=== PATIENT | female | born 1975 | race Caucasian/White ===

== ENCOUNTER 2021-06-16 10:17 | Inpatient (IN) | payer OTHER, SELFPAY ==
[2021-06-16] VITALS (11 sets, daily range): BP systolic 90–135; BP diastolic 50–87; PULSE 70–108; RESP 15–21; TEMP 36.6–36.7; O2SAT 97–100; BMI 35.9
--- NOTE | ~2021-06-16 | XR_ITS ---
EXAMINATION: XR chest 2V DATE: 06/16/2021 10:37 INDICATION: Chest pain TECHNIQUE: AP and lateral views of the chest are obtained. COMPARISON: None available FINDINGS: The lungs are free of acute opacities. There is no pleural effusion or pneumothorax. The ca rdiomediastinal silhouette is normal. The visualized bones and soft tissues are unremarkable. A cardi ac monitoring device projects over the left upper thorax. IMPRESSION: 1. No acute cardiopulmonary abnormality. Reviewed, dictated and finalized at location A.
--- NOTE | 2021-06-16 10:28 | ECG_ITS ---
Measurements Intervals [place] Rate: 97 P: 34 IA: 147 QRS: -4 QRSD: 94 T: 0 QT: 383 QTc: 487 Interpretive Statements SINUS RHYTHM INCOMPLETE RIGHT BUNDLE BRANCH BLOCK BORDERLINE T WAVE ABNORMALITY- ANTEROLAT/INF LEADS BORDERLINE ECG Electronically Signed On 06-16-2021 10:58:29 CDT by Giovani Irwin D.O.
--- NOTE | 2021-06-16 10:39 | PC.NURSE ---
Pt to XRAY via stretcher at this time.
[2021-06-16 11:22] LABS: Basophils Absolute Auto 0.1 K/mm3 (0.0-0.1); Basophils Percent Auto 0.8 % (0.2-1.2); Eosinophils Absolute Auto 0.2 K/mm3 (0-0.3); Eosinophils Percent Auto 1.3 % (0-4.4); Hematocrit 42.4 % (37.0-47.0); Hemoglobin 13.8 g/dL (12.0-15.0); Immature Granulocyte Absolute 0.04 K/mm3 (0.00-0.031); Immature Granulocyte Percent A 0.3 % (0-0.5); Lymphocytes Absolute Auto 1.86 K/mm3 (0.9-3.2); Lymphocytes Percent Auto 15.8 % (18.3-44.2); Mean Corpuscular HGB Conc 32.5 g/dl (32-36); Mean Corpuscular Hemoglobin 30.4 pg (26-34); Mean Corpuscular Volume 93.4 fl (80-100); Mean Platelet Volume 10.4 fl (7.4-10.4); Monocytes Absolute Auto 0.7 K/mm3 (0.1-0.6); Monocytes Percent Auto 5.6 % (2.6-8.5); Neutrophils Percent Auto 76.2 % (45.5-73.1); Platelet Count Result 305 k/mm3 (150-375); Red Blood Count 4.54 M/mm3 (4.2-5.4); Red Cell Distribution Width 12.5 % (11.5-14.5); White Blood Count 11.8 K/mm3 (4.5-10.0)
[2021-06-16 11:32] LABS: Partial Thromboplastin Time 25.2 SECONDS (22.3-36.8)
[2021-06-16 11:34] LABS: Alanine Aminotransferase 29 U/L (4-35); Albumin Level 4.1 g/dL (3.5-5.1); Alkaline Phosphatase 74 U/L (38-126); Anion Gap 8 mmol/L (8-16); Aspartate Amino Transferase 47 U/L (14-36); Bilirubin,Total 0.4 mg/dL (0.2-1.3); Blood Urea Nitrogen 14 mg/dL (7-17); Carbon Dioxide 27 mmol/L (22-30); Chloride 103 mmol/L (98-107); Estimated CRCL calculation 91 ml/min; Estimated Glomerular Filt Rate > 60; Glucose 107 mg/dL (65-110); Lipase 374 U/L (23-300); Potassium 3.6 mmol/L (3.4-5.0); Sodium 138 mmol/L (137-145)
[2021-06-16 11:45] LABS: Troponin I < 0.012 ng/mL (0.000-0.034)
--- NOTE | 2021-06-16 13:56 | ED.CHESTPAIN ---
HPI - Chest Pain General Chief Complaint: Chest Pain Stated Complaint: CP Time Seen by Provider: 06/16/21 12:08 Source: patient and family Mode of arrival: EMS Limitations: no limitations History of Present Illness HPI narrative: 45-year-old with a history of hypertension, breast CVA presently on tamoxifen presents to the ER from work with complaints of having a sudden onset of chest pain associated denies nausea, diaphoresis and, lightheadedness followed by syncopal episode. Patient states that she has been having the symptoms for last few months. Had a stress echo done at [facility] which was unremarkable followed by CTA of the chest which was normal last she had a Holter monitor placed. Her primary automation clerk Dr. Mcfarlane in [place], [place] she states that she is scheduled to see Dr. Roque at [facility] sometime next wk . Patient states she did receive nitro which eased the pain. MD complaint: chest pain Onset (ago): hour(s) (1) Related Data Allergies Allergy/AdvReac Type Severity Reaction Status Date / Time No Known Allergies Allergy Verified 06/16/21 10:40 Review of Systems Constitutional: Constitutional: Reports no additional constitutional complaints Eyes: Eyes: Reports no additional eye complaints ENT: Reports system reviewed and no additional complaints, except as documented Cardiovascular: Cardiovascular: Reports as per HPI Respiratory: Respiratory: Reports no additional respiratory complaints Gastrointestinal: Gastrointestinal: Reports no additional gastrointestinal complaints Musculoskeletal: Musculoskeletal: Reports no additional musculoskeletal complaints Integumentary/Breasts: Skin/Breast: Reports system reviewed and no additional complaints, except as docu Neurologic: Reports system reviewed and no additional complaints, except as documented Endocrine: Endocrine: Reports no additional endocrine complaints Hematologic/Lymphatic: Hematologic/Lymphatic: Reports no additional hematologic/lymphatic complaints Exam Narrative: GENERAL: Well-appearing, well-nourished, and in no acute distress, anxious HEAD: Normocephalic, atraumatic. EYES: PERRLA and EOMI. NECK: Supple. CHEST: Clear to auscultation. No respiratory distress. HEART: Regular rate and rhythm. No murmur heard. Normal peripheral pulses. ABDOMEN: Soft, nontender, nondistended, normal active bowel sounds. EXTREMITIES: Normal range of motion. No edema. SKIN: Warm, dry, no rash. NEURO: No focal deficits. Alert and oriented x3. PSYCH: Normal mood and affect. Course Course Emergency Course: Patient comfortably sitting on the bed still feeling anxious informed her about her lab work, EKG and chest x-ray findings. I discussed with Dr. Roque will see the patient in consult discussed with Suzie stout to admit the patient Vital Signs Vital signs: Vital Signs Temperature 36.6 C 06/16/21 10:29 Pulse Rate 104 H 06/16/21 10:29 Respiratory Rate 18 06/16/21 10:29 Blood Pressure 135/84 06/16/21 10:29 Pulse Oximetry 97 06/16/21 10:29 Temperature 36.6 C 06/16/21 10:29 Pulse Rate 91 06/16/21 12:58 Respiratory Rate 21 H 06/16/21 12:58 Blood Pressure 115/87 06/16/21 12:58 Pulse Oximetry 98 06/16/21 12:58 MDM - Chest Pain Differential Diagnosis Differential diagnosis: Likely unstable angina pectoris and atypical chest pain Lab Data Attestation: I reviewed the patient's lab results. Result diagrams: 06/16/21 11:12 06/16/21 11:12 Labs: Lab Results 06/16/21 06/16/21 06/16/21 Range/Units 11:12 11:12 11:12 WBC 11.8 H (4.5-10.0) K/mm3 RBC 4.54 (4.2-5.4) M/mm3 Hgb 13.8 (12.0-15.0) g/dL Hct 42.4 (37.0-47.0) % MCV 93.4 (80-100) fl MCH 30.4 (26-34) pg MCHC 32.5 (32-36) g/dl RDW 12.5 (11.5-14.5) % Plt Count 305 (150-375) k/mm3 MPV 10.4 (7.4-10.4) fl Immature Gran % (Auto) 0.3 (0-0.5) % Neut % (Auto) 76.2 H (45.5-73.1)
[2021-06-16 14:34] LABS: Troponin I < 0.012 ng/mL (0.000-0.034)
[2021-06-16 14:53] LABS: SARS-CoV-2 RNA PCR Negative
--- NOTE | 2021-06-16 15:19 | PC.NURSE ---
called dietary and ordered tray for pt at this time, will be sent to admit room 210
[2021-06-16 17:40] LABS: Troponin I < 0.012 ng/mL (0.000-0.034)
[2021-06-16] MEDS: LACTATED RINGERS 1,000 ML 75 ML IV CONT (17:51)
--- NOTE | 2021-06-16 18:30 | PM.IMHP ---
H&P: HPI History of Present Illness Date/Time: 06/16/21 18:30 Chief Complaint: Syncopal episode. Narrative: This is a pleasant 45-year-old female with hypertension and history of breast cancer who presented to the emergency department via EMS from her place of work for evaluation after syncopal episode. She had her gallbladder taken out at the beginning of April and approximately 3 weeks thereafter she had an episode of pretty significant low sternal/epigastric pain followed by nausea, vomiting, diaphoresis, and brief loss of consciousness. She was seen in the emergency department [facility] at which time a chest CTA and multiple tests were performed and reportedly unremarkable. She had a similar episode about a week thereafter which occurred while she was sitting down and that prompted her to see her primary care provider who put her on a 3 week event monitor late last week. She has been getting along okay however not long prior to arrival today, she was sitting at her desk at work cutting out some papers when she once again developed severe, midsternal chest pain (burning and stabbing in nature) radiating to the left axilla associated with diaphoresis, nausea, and lightheadedness. She went to the bathroom where she had several episodes of emesis and due to continued lightheadedness she called her coworkers who came in to check on her. It is my understanding that she then had a brief syncopal episode however for several minutes she seemed to go in and out of consciousness. On EMS arrival, she told them that she was having such severe chest pain that it was ?taking her breath away? and her breathing was reportedly shallow and rapid. Vital signs were stable on their arrival and on arrival to the ED. Currently she is resting comfortably and she has no specific complaints and she has no pain at this time. Review of Systems Review of Systems: Twelve systems were reviewed. No fever or chills. No recent cold or flu symptoms. No history of thyroid disease. No history of cardiac disease or cardiac dysrhythmia. No history of venous thromboembolism. No exertional chest pain. No orthopnea, PND, or lower extremity edema. She denies hematemesis, melena, and hematochezia. Except as documented, all other systems were reviewed and are negative. [facility] Past Medical History Medical History (Updated 06/16/21 @ 21:57 by Maria Luz Del Angel PA-C) Cancer of left breast (01/2017) Status post lumpectomy, radiation, chemotherapy, and Herceptin therapy now on tamoxifen. Hypertension Surgical History Surgical History (Updated 06/16/21 @ 21:57 by Maria Luz Del Angel PA-C) History of cholecystectomy History of lumpectomy of left breast Family History Family History (Updated 06/16/21 @ 21:58 by Maria Luz Del Angel PA-C) Father Cerebrovascular accident Heart disease Mother Hypertension Crohn's disease Sibling Asthma Social History Social History (Updated 06/16/21 @ 21:59 by Maria Luz Del Angel PA-C) Social History: Surrogate decision maker: Jack Roberts, spouse. Code status: Full code. Smoking status: Never smoker Second hand tobacco smoke exposure: No Alcohol intake: current Alcohol use details: Social alcohol use in moderation. Substance use: never Additional living arrangements comments: The patient lives in [place] with her . They have a grown son. Additional occupation/education comments: Employed at [employer]. Spiritual care concerns: No Meds Home Medications and Allergies Home Medications Medication Instructions Recorded Confirmed Type lisinopril-hydrochlorothiazide 1 tablet PO DAILY 06/16/21 06/16/21 History tamoxifen 20 mg PO DAILY 06/16/21 06/16/21 History Allergies Allergy/AdvReac Type Severity Reaction Status Date / Time No Known Allergies Allergy Verified 06/16/21 10:40 Vital Signs Vital Signs - 24 hr 06/16/21 10:29 06/16/21 10:38 06/16/21 11:38 Temperatu
[2021-06-17] VITALS (18 sets, daily range): BP systolic 105–138; BP diastolic 61–91; PULSE 66–106; RESP 16–20; TEMP 36.7–37.1; O2SAT 96–100
--- NOTE | 2021-06-17 | ECHO_ITS ---
Patient Info Name: Theresa Roberts Age: 45 years : 1975 Gender: Female Ht: 62 in Wt: 196 lbs BSA: 2.01 m2 HR: 79 bpm BP: 138 / 78 mmHg Heart Rhythm: Sinus Rhythm Technical Quality: Fair Exam Date: 06/17/2021 12:23 PM Exam Location: [facility] Pulmonary Patient Status: Inpatient Admit Date: 06/16/2021 Staff Ordering Physician: Gee Roque MD Auto Motor Mechanic: Lily Bergeron RDCS Attending Provider: Isaias Vidales MD Referring Physician: Mya GONG; Exam Type: CA echo doppler color flow Study Info Indications R55 - Syncope and collapse R07.9 - Chest pain, unspecified Complete two-dimensional, color flow and Doppler transthoracic echocardiogram is performed. Strain analysis performed. Summary 1. Complete two-dimensional, color flow and Doppler transthoracic echocardiogram is performed. 2. Strain analysis performed. 3. Left ventricular chamber dimension is normal. 4. Left ventricular systolic function is normal, estimated at 55-60%. 5. There is mildly increased left ventricular wall thickness. 6. The left ventricular diastolic function is grade I diastolic dysfunction. 7. Global longitudinal strain is borderline at -17 %. 8. There is mild aortic valve sclerosis. Left Ventricle Left ventricular chamber dimension is normal. Left ventricular systolic function is normal, estimated at 55-60%. There is mildly increased left ventricular wall thickness. The left ventricular diastolic function is grade I diastolic dysfunction. Global longitudinal strain is borderline at -17 %. Right Ventricle Right ventricular chamber dimension is normal. Right ventricular systolic function is normal. Left Atria Left atrial chamber dimension is normal. Right Atria Right atrial chamber dimension is normal. Atrial Septum Intact interatrial septum visualized by color flow imaging. Aortic Valve The aortic valve is trileaflet. There is mild aortic valve sclerosis. There is no aortic valve stenosis. There is trace aortic valve regurgitation. Pulmonic Valve The pulmonic valve is normal. There is no pulmonic valve stenosis. There is trace pulmonic regurgitation. Mitral Valve The mitral valve has normal leaflets. There is no mitral valve stenosis. There is trace mitral valve regurgitation. Tricuspid Valve The tricuspid valve leaflets are normal. There is no significant tricuspid valve stenosis. There is trace tricuspid valve regurgitation. Pericardium/Pleural The pericardium appears normal. There is no pericardial effusion. Inferior Vena Cava Normal inferior vena cava with >50% collapse upon inspiration consistent with normal right atrial pressure, 5 mmHg. Aorta The aortic root size at the sinus of Valsalva is normal. The prox ascending aorta size is normal. Left Ventricular Outflow Tract Name Value Normal LVOT 2D LVOT Diameter 2.0 cm LVOT Doppler LVOT Peak Gradient 4 mmHg LVOT Mean Gradient 2 mmHg LVOT VTI 17 cm LVOT VTI/AV VTI Ratio 0.7
[2021-06-17 05:31] LABS: Hemoglobin 13.3 g/dL (12.0-15.0); Mean Corpuscular HGB Conc 33.3 g/dl (32-36); Mean Corpuscular Hemoglobin 30.9 pg (26-34); Mean Platelet Volume 10.4 fl (7.4-10.4); Platelet Count Result 282 k/mm3 (150-375); Red Cell Distribution Width 12.6 % (11.5-14.5); White Blood Count 6.9 K/mm3 (4.5-10.0)
[2021-06-17 05:47] LABS: Alanine Aminotransferase 23 U/L (4-35); Albumin Level 3.8 g/dL (3.5-5.1); Alkaline Phosphatase 57 U/L (38-126); Anion Gap 7 mmol/L (8-16); Aspartate Amino Transferase 28 U/L (14-36); Bilirubin,Total 0.5 mg/dL (0.2-1.3); Blood Urea Nitrogen 14 mg/dL (7-17); Calcium 8.6 mg/dL (8.4-10.2); Carbon Dioxide 28 mmol/L (22-30); Chloride 103 mmol/L (98-107); Estimated CRCL calculation 104 ml/min; Estimated Glomerular Filt Rate > 60; Glucose 103 mg/dL (65-110); Lipase 248 U/L (23-300); Potassium 3.6 mmol/L (3.4-5.0); Sodium 138 mmol/L (137-145)
[2021-06-17] MEDS: TAMOXIFEN CITRATE (*CHEMO) 10 MG TABLET 20 MG PO (08:46)
--- NOTE | 2021-06-17 11:16 | PM.CNCAR ---
Assessment and Plan Assessment and plan (1) Chest pain: Qualifiers: Chest pain type: unspecified Qualified Code(s): R07.9 - Chest pain, unspecified Code(s): R07.9 - Chest pain, unspecified Status: Acute Assessment and Plan: This is atypical to be cardiac in etiology but she has had a stress test which is normal. Most likely GI related. Symptoms are occurring after she was taken off of omeprazole and after her cholecystectomy. Consider esophageal spasm. Cannot exclude coronary spasm and albeit not likely, cannot rule out underlying CAD at this point either. Will consult GI, Dr. Ennis for consideration of upper endoscopy. Will start her on pantoprazole 40 mg p.o. daily. She has ruled out for myocardial infarction. Will order 2D echocardiogram with Doppler especially given her syncopal episode and palpitations. If GI workup is unremarkable, could consider coronary artery CT scan plus minus coronary angiogram. (2) Syncope: Qualifiers: Syncope type: unspecified Qualified Code(s): R55 - Syncope and collapse Code(s): R55 - Syncope and collapse Status: Acute Assessment and Plan: Sounds vagally mediated. Symptoms were worsened upon getting up which is associated with a vasodepressor type of syncope. She is wearing a teletypesetter monitor and will try did talk to [facility] to see if any arrhythmias are present. (3) Hypertension: Code(s): I10 - Essential (primary) hypertension Status: Acute Assessment and Plan: BP is stable at this point. Holding lisinopril and hydrochlorothiazide for now. (4) Hypokalemia: Code(s): E87.6 - Hypokalemia Status: Acute Assessment and Plan: KCL 40 mEq p.o. x1. History of Present Illness History of Present Illness Consult date/time: 06/17/21 11:16 Requesting physician: Ruperto Oropeza MD Consult reason: chest pain Reason For Visit: Atrial fibrillation with RVR Narrative: Reason for consultation: Atrial fibrillation Date of service 06/17/2021 Requesting provider: Dr. Oropeza History: Patient is a 45-year-old female has history of hypertension and breast cancer. She is on tamoxifen therapy. Reportedly she was seen to be in atrial fibrillation yesterday although there is no documentation of atrial fibrillation. Documentation shows artifact and sinus tachycardia but no atrial fibrillation. Regardless, her symptoms started in April. She had a cholecystectomy in April. She does have a history of syncope dating back several years but her current symptoms started about May 11. This was after her cholecystectomy. She had anterior chest pain that went up into her neck and throat it then radiated to the left shoulder area. She felt cold clammy and sweaty and she went to emergency department. Symptoms lasted about 2 and half to 3 hours in workup in the ED at [facility] was reportedly unremarkable. This led to her having a stress test which was normal. This was an exercise stress echocardiogram. She had another episode in early June. She got into her car, felt cold clammy and her chest was hurting. Radiate to his shoulder also and she describes sharp lightening like pain. She did throw up and she was lightheaded. Symptoms lasted about 2 and half to 3 hours also. It felt similar to the previous episode in April. She then had another episode yesterday. She started feel sick while at work. She went to the bathroom. She fell like her arms and legs or weird and weak. She called out to a co-worker and she sat down. She was sweaty, clammy and she did describe chest pain 2. She does describe palpitations during these episodes. She laid down on a bench and felt increasingly lightheaded and dizzy every time she started to set up. EMS was called and she was told that she passed out about 3 times by the time she got to the emergency department. She was given nitroglycerin and aspirin and her symptoms reportedly impr
--- NOTE | 2021-06-17 11:21 | PM.IMPN ---
Progress Note: A&P Assessment and Plan (1) Syncope: Qualifiers: Syncope type: unspecified Qualified Code(s): R55 - Syncope and collapse Code(s): R55 - Syncope and collapse Status: Acute Assessment and Plan: Probably cardiogenic vasovagal Precipitated by chest pain Concern for Prinzmetal angina Cardiology consult Patient has event monitor pending interrogation Check orthostatics Will continue to monitor overnight re-evaluate in a.m. (2) Chest pain: Qualifiers: Chest pain type: unspecified Qualified Code(s): R07.9 - Chest pain, unspecified Code(s): R07.9 - Chest pain, unspecified Status: Acute Assessment and Plan: Possible Prinzmetal angina versus esophageal spasm Pending cardiology eval Continue tele monitor Troponin and EKG (3) Hypertension: Code(s): I10 - Essential (primary) hypertension Status: Acute Assessment and Plan: Lisinopril hydrochlorothiazide Subjective Date/time seen: 06/17/21 11:21 Interval history: 45 years old female with past medical history of hypertension syncopal episode in the past presented to the hospital with multiple syncopal episode patient had 3 syncopal episode in the last month and a half patient in the past more than 5 years ago she has syncopal episode and was attributed to allergic reaction to artificial sweeteners and the syncopal episode has resolved after she discontinued with taking artificial sweeteners patient had multiple episode of chest pain associated with nausea and sweating and near syncope but before admission she had episode of with chest pain and syncope patient had event monitor Patient feels better today Patient denies fever headache chest pain shortness of breath I am seeing the patient for syncopal episode Exam Narrative: Alert Chest no wheeze crackles Abdomen nontender nondistended CVS S1 + S2 Lower extremity edema Objective Data Vital Signs Vital Signs: Vital Signs - 24 hr 06/16/21 11:38 06/16/21 12:58 06/16/21 14:08 Temperature Pulse Rate 101 H 91 90 Respiratory Rate 17 21 H 15 Blood Pressure 115/87 101/63 Pulse Oximetry 97 98 100 06/16/21 15:16 06/16/21 16:28 06/16/21 19:58 Temperature 98.1 F 97.8 F Pulse Rate 99 94 87 Respiratory Rate 19 20 20 Blood Pressure 100/87 127/78 106/58 L Pulse Oximetry 99 100 100 06/16/21 20:00 06/16/21 22:00 06/16/21 23:22 Temperature 98.0 F Pulse Rate 108 H 80 70 Respiratory Rate 18 Blood Pressure 90/50 L Pulse Oximetry 99 06/17/21 00:00 06/17/21 00:38 06/17/21 02:00 Temperature Pulse Rate 83 68 Respiratory Rate Blood Pressure 106/61 Pulse Oximetry 06/17/21 04:00 06/17/21 06:00 06/17/21 08:00 Temperature 98.0 F 98.8 F Pulse Rate 66 80 79 Respiratory Rate 20 16 Blood Pressure 105/63 133/66 Pulse Oximetry 97 99 06/17/21 08:50 06/17/21 09:07 06/17/21 09:08 Temperature Pulse Rate 87 77 76 Respiratory Rate Blood Pressure 126/71 138/78 Pulse Oximetry 99 98 Intake/Output Intake/Output: Intake & Output 06/14/21 06/15/21 06/16/21 06/17/21 23:59 23:59 23:59 23:59 Intake Total 1360 400 Output Total 250 Balance 1110 400 Meds/Results Medications: Active Medications Generic Name Dose Route Start Last Admin Trade Name Freq PRN Reason Stop Dose Admin Acetaminophen 650 mg 06/16/21 13:53 Acetaminophen 325 Mg Tablet PO Q4H PRN Mild Pain (1-3) or Fever Ondansetron HCl 4 mg 06/16/21 13:53 Ondansetron Inj 4 Mg/2 Ml Vial IV PUSH Q4H PRN Nausea Perflutren Lipid Microsphere 0 ml 06/16/21 13:53 Perflutren Lipid Microspheres 1.5 Ml Vial Diluted To 10 Ml Total Volume IV PUSH ONCE PRN adequate visualization Protocol Tamoxifen Citrate 20 mg 06/17/21 09:00 06/17/21 08:46 Tamoxifen Citrate (*Chemo) 10 Mg Tablet PO 20 mg DAILY JAMSHID Administration Radiology Results: ITS Impressions Chest X-Ray
[2021-06-17] MEDS: POTASSIUM CHLORIDE 20 MEQ TABLET 40 MEQ PO (12:46)
[2021-06-17] MEDS: PANTOPRAZOLE 40 MG TABLET PO (13:02)
--- NOTE | 2021-06-17 16:46 | WPDGICN ---
Assessment and Plan Assessment and plan (1) Non-cardiac chest pain: Code(s): R07.89 - Other chest pain Status: Acute Assessment and Plan: will proceed with egd tomorrow, ? esophagitis, spasm, etc. Will get biopsies to check for h pylori, celiac, etc cardiology on board (2) Syncope: Qualifiers: Syncope type: unspecified Qualified Code(s): R55 - Syncope and collapse Code(s): R55 - Syncope and collapse Status: Acute Assessment and Plan: resolved, ? vasovagal (3) Hypertension: Code(s): I10 - Essential (primary) hypertension Status: Acute Assessment and Plan: on meds (4) Cancer of left breast: Onset Date: 01/2017 Code(s): C50.912 - Malignant neoplasm of unspecified site of left female breast Status: Inactive (5) History of cholecystectomy: Code(s): Z90.49 - Acquired absence of other specified parts of digestive tract Status: Inactive GI Consult Note Consult date/time: 06/17/21 16:46 Reason for consult: non-cardiac chest pain, gerd HPI: Theresa Roberts is a 45 year old female with history of breast cancer on tamoxifen and HTN. She has been dealing with recurrent chest pain since April after had a cholecystectomy in April. She had total of 4 episodes of chest pain in left side that went up into her neck and throat, normally will feel cold clammy and sweaty and has been in ER because of same, episodes can last up to 2-3 hours and had stress test which was normal. Denies any obvious triggers. This time another episode, also associated with nausea and vomiting only when she is in pain. She was admitted and cardiology on board, she was on ppi but discontinued after he cholecystectomy, never had EGD. Review of Systems Constitutional: Constitutional: Denies fatigue Eyes: Eyes: Denies blurry vision ENT: Reports Normal hearing present Cardiovascular: Cardiovascular: Reports chest pain Respiratory: Respiratory: Denies dyspnea Gastrointestinal: Gastrointestinal: Reports nausea Genitourinary: Genitourinary: Denies hematuria Musculoskeletal: Musculoskeletal: Denies neck pain Integumentary/Breasts: Skin/Breast: Denies dry skin Neurologic: Denies headache(s) Psychiatric: Psychiatric: Denies behavioral changes [facility] [place] Past Medical History Medical History (Updated 06/17/21 @ 16:50 by Sandro Ruffin MD) Cancer of left breast (01/2017) Status post lumpectomy, radiation, chemotherapy, and Herceptin therapy now on tamoxifen. Hypertension Non-cardiac chest pain Surgical History Surgical History (Updated 06/17/21 @ 16:50 by Sandro Ruffin MD) History of cholecystectomy History of lumpectomy of left breast Family History Family History Father Cerebrovascular accident Heart disease Mother Hypertension Crohn's disease Sibling Asthma Social History Social History Social History: Surrogate decision maker: Jackarden Roberts, spouse. Code status: Full code. Smoking status: Never smoker Second hand tobacco smoke exposure: No Alcohol intake: current Alcohol use details: Social alcohol use in moderation. Substance use: never Additional living arrangements comments: The patient lives in [place] with her . They have a grown son. Additional occupation/education comments: Employed at [employer]. Spiritual care concerns: No Meds Home Medications and Allergies Home Medications Medication Instructions Recorded Confirmed Type lisinopril-hydrochlorothiazide 1 tablet PO DAILY 06/16/21 06/16/21 History tamoxifen 20 mg PO DAILY 06/16/21 06/16/21 History Allergies Allergy/AdvReac Type Severity Reaction Status Date / Time No Known Allergies Allergy Verified 06/16/21 10:40 Vital Signs Vital Signs - 24 hr 06/16/21 19:58 0
[2021-06-18] VITALS (15 sets, daily range): BP systolic 128–146; BP diastolic 76–90; PULSE 61–97; RESP 16–27; TEMP 36.3–36.8; O2SAT 96–100
[2021-06-18] MEDS: PANTOPRAZOLE 40 MG TABLET PO (08:12)
[2021-06-18] MEDS: TAMOXIFEN CITRATE (*CHEMO) 10 MG TABLET 20 MG PO (08:12)
[2021-06-18] MEDS: LACTATED RINGERS 1,000 ML 150 ML IV CONT (10:20)
--- NOTE | 2021-06-18 10:48 | WPDANESEPPF ---
Anes - Initial Pre Proc Eval Procedure: Operation Date: 06/18/21 16:45 Proposed Procedures p Esophagogastroduodenoscopy - Sandro Ruffin MD Date/Time: 06/18/21 10:48 Surgeon: Piyush Vidales MD Pre Op Diagnosis: Atrial fibrillation with RVR Patient Data Age: 45 Gender: F Height: 1.57 m Weight: 89 kg Last Vital Signs Temp 36.3 C L 06/18/21 10:17 Pulse 84 06/18/21 10:17 Resp 20 06/18/21 10:17 BP 146/82 H 06/18/21 10:17 Pulse Ox 97 06/18/21 10:17 Allergies Allergy/AdvReac Type Severity Reaction Status Date / Time No Known Allergies Allergy Verified 06/18/21 10:12 Home Medications Medication Instructions Recorded Confirmed Type lisinopril-hydrochlorothiazide 1 tablet PO DAILY 06/16/21 06/16/21 History tamoxifen 20 mg PO DAILY 06/16/21 06/16/21 History Patient hx anesthesia problems: post op nausea/vomiting Family hx anesthesia problems: none Results Review: All pre-operative results and documents have been reviewed as part of the pre-operative evaluation. [facility] [place] Past Medical History Medical History Cancer of left breast (01/2017) Status post lumpectomy, radiation, chemotherapy, and Herceptin therapy now on tamoxifen. Hypertension Non-cardiac chest pain Surgical History Surgical History History of cholecystectomy History of lumpectomy of left breast Family History Family History Father Cerebrovascular accident Heart disease Mother Hypertension Crohn's disease Sibling Asthma Social History Social History Social History: Surrogate decision maker: Jack Roberts, spouse. Code status: Full code. Smoking status: Never smoker Second hand tobacco smoke exposure: No Alcohol intake: current Alcohol use details: Social alcohol use in moderation. Substance use: never Additional living arrangements comments: The patient lives in [place] with her . They have a grown son. Additional occupation/education comments: Employed at [employer]. Spiritual care concerns: No Anes - Eval Final PreProcedure Day of Procedure 06/18/21 10:48 Patient weight: obese Heart: regular rate and rhythm Lungs: clear to auscultation Airway: Mallampati scale class II Neurological: alert and oriented Last oral intake: >/= 8 hours ASA classification: III Emergent: no Anesthetic plan: proceed Anesthesia type and monitoring: general GIVS and standard monitoring Results Review: All pre-operative results and documents have been reviewed as part of the pre-operative evaluation. Informed Consent: The patient's anesthetic plan and its attendant risks and benefits were discussed with the patient/family/POA. Questions were solicited and answers provided to the satisfaction of the patient/family/POA.
[2021-06-18] MEDS: ACETAMINOPHEN 325 MG TABLET 650 MG PO (11:51)
--- NOTE | 2021-06-18 11:51 | PM.PNCARD ---
Progress Note: A&P Assessment and Plan (1) Chest pain: Qualifiers: Chest pain type: unspecified Qualified Code(s): R07.9 - Chest pain, unspecified Code(s): R07.9 - Chest pain, unspecified Status: Acute Assessment and Plan: This is atypical to be cardiac in etiology but she has had a stress test which is normal. Symptoms are occurring after she was taken off of omeprazole and after her cholecystectomy. Consider esophageal spasm. Cannot exclude coronary spasm and albeit not likely, cannot rule out underlying CAD at this point either. Ruled out for [place] Consider coronary artery CT and/or coronary angiogram Echo showed normal LV systolic function, grade I diastolic dysfunction. No significant valvular abnormalities Underwent EGD this morning that did show some gastritis Continue PPI trial (2) Syncope: Qualifiers: Syncope type: unspecified Qualified Code(s): R55 - Syncope and collapse Code(s): R55 - Syncope and collapse Status: Acute Assessment and Plan: Sounds vagally mediated. Symptoms were worsened upon getting up which is associated with a vasodepressor type of syncope. Wearing 21 day event monitor - called [employer] to have any event results faxed (3) Hypertension: Code(s): I10 - Essential (primary) hypertension Status: Acute Assessment and Plan: BP is stable at this point. Holding lisinopril and hydrochlorothiazide for now (4) Hypokalemia: Code(s): E87.6 - Hypokalemia Status: Acute Assessment and Plan: Resolved Subjective Date/time seen: 06/18/21 11:51 Cardiology follow up for chest pain, syncope Feels about the same today. Not having chest pain currently. Denies shortness of breath, palpitations. Review of Systems Review of Systems: All systems reviewed & are unremarkable except as noted in HPI and below Constitutional: Constitutional: Denies excessive sweating, Denies fatigue, Denies headache(s) and Reports weakness Eyes: Eyes: Denies blurry vision ENT: Reports Normal hearing present, Denies headache(s) and Denies neck pain Cardiovascular: Cardiovascular: Reports chest pain and Denies dyspnea Respiratory: Respiratory: Denies dyspnea Gastrointestinal: Gastrointestinal: Denies abdominal pain, Reports nausea and Reports vomiting Genitourinary: Genitourinary: Denies hematuria and Denies flank pain Musculoskeletal: Musculoskeletal: Denies neck pain Integumentary/Breasts: Skin/Breast: Denies dry skin Neurologic: Reports Normal hearing present, Denies headache(s) and Reports weakness Psychiatric: Psychiatric: Denies anxiety Endocrine: Endocrine: Denies excessive sweating and Denies fatigue Hematologic/Lymphatic: Hematologic/Lymphatic: Denies easy bleeding Allergic/Immunologic: Allergic/Immunologic: Denies GI upset with certain foods Exam Narrative: Awake alert and oriented appears to be in no acute distress. Appears stated age Const: General: comfortable and no acute distress HENMT: General nose exam: Normal nares present Eyes: Sclera: sclerae normal Neck: Neck: supple and no JVD Resp: Auscultation: clear to auscultation bilaterally Cardio: Rate: regular rate Rhythm: regular rhythm GI: Inspection: non-distended Auscultation: normal bowel sounds Skin: General skin exam: normal color Neuro: Cranial nerves: Yes Normal hearing present Cognition (Neuro): normal cognition Speech: normal speech Extrem: General: normal to inspection and no edema Psych: Mental Status: mental status grossly normal Objective Data Vital Signs Vital Signs: Vital Signs - 24 hr 06/17/21 12:00 06/17/21 14:00 06/17/21 16:00 Temperature 36.8 C 36.7 C Pulse Rate 86 90 85 Respiratory Rate 18 16 Blood Pressure 134/91 H 133/80 Pulse Oximetry 98 98 06/17/21 18:00 06/17/21 19:52 06/17/21 20:00 Temperature 37.1 C Pulse Rate 90 79 76 Respiratory Rate 16 Blood Pressure 134/74
--- NOTE | 2021-06-18 16:12 | PM.DS ---
DS: Admitting Diagnosis Discharge Date 06/18/2021 Admitting Diagnosis Syncopal episode DS: Discharge Diagnosis Discharge Diagnosis (1) Syncope: Qualifiers: Syncope type: unspecified Qualified Code(s): R55 - Syncope and collapse Code(s): R55 - Syncope and collapse Status: Acute Assessment and Plan: Probably cardiogenic vasovagal Precipitated by chest pain Concern for Prinzmetal angina Cardiology consult Echo no significant finding Event monitor interrogation per Cardiology Activity restriction No driving until it by Cardiology or PCP as outpatient (2) Chest pain: Qualifiers: Chest pain type: unspecified Qualified Code(s): R07.9 - Chest pain, unspecified Code(s): R07.9 - Chest pain, unspecified Status: Acute Assessment and Plan: Probable related to esophageal spasm and gastritis patient will need CT angiogram as outpatient follow-up with Cardiology (3) Hypertension: Code(s): I10 - Essential (primary) hypertension Status: Acute Assessment and Plan: Lisinopril hydrochlorothiazide DS: Summary Hospital Course Hospital Course: 45 years old female with past medical history of hypertension presented to the hospital with episode of chest pain associated with syncope patient had multiple episodes of syncope in the past month and a half patient currently have event monitor cardiology was consulted GI was consulted differential was including Prinzmetal angina and esophageal spasm EGD was done showed gastritis and gastric polyp biopsy was taken follow-up with GI as outpatient echo was negative for significant findings patient to follow-up with PCP and Cardiology as outpatient plan to arrange for CT coronary artery angiogram as outpatient follow-up with Cardiology to arrange as outpatient Time Spent with Patient Time attestation: Total time spent providing and/or coordinating discharge services: 25 minutes Exam Narrative: Alert Chest no wheeze crackles Abdomen nontender nondistended CVS S1 + S2 Lower extremity edema DS: Data Data Completed and Pending Pending studies at discharge: Pending at discharge 06/18/21 11:02 Surgical [PTH] Routine Discharge Plan Discharge Attending physician on discharge: Maddison Fang M.A. Consulting providers: Sandro Ruffin ; Gee Roque Discharging Clinician: Maddison Fang M.A. Patient Disposition: Home, Self-Care Activity: no driving and other - see discharge instructions Diet: heart healthy Discharge Instructions: No driving or operating heavy missionary until cleared by Cardiology as outpatient Avoid any activities where syncope and loss of consciousness could cause harm to you or to others follow-up with cardiology and PCP as outpatient in 1 week Patient Instructions: Antibiotic Form Stand Alone Forms: General Discharge Information Follow-up/Referrals: Gee Roque MD [Physician] - Denys,Jaylen Godoy MD [Primary Care Provider] - Sandro Ruffin MD [Physician] - Discharge Medications: New pantoprazole 40 mg Tablet,Delayed Release (Dr/Ec) 40 mg PO QAM Qty: 30 RF: 0 Continued lisinopril-hydrochlorothiazide 20-12.5 mg tablet 1 tablet PO DAILY RF: 0 tamoxifen 20 mg tablet 20 mg PO DAILY RF: 0 Date of admission: 06/16/21 13:54 Primary Care Provider: Denys,Jaylen Godoy Admitting Provider: Isaias Vidales Attending physician on admission: Isaias Vidales Condition: Stable Quality VTE Prophylaxis VTE prophylaxis: mechanical ordered
--- NOTE | 2021-06-19 09:43 | WPDANESPN ---
Anes - Prog Note Post-Op Date/Time: 06/19/21 09:43 Cardiovascular status: normal Respiratory status: normal Airway patency: baseline Mental status: baseline Post-Op hydration status: normal Vital Signs: Last Vital Signs Temp 98.3 F 06/18/21 16:00 Pulse 84 06/18/21 16:00 Resp 20 06/18/21 16:00 BP 133/79 06/18/21 16:00 Pulse Ox 100 06/18/21 16:00 Pain Score (VAS): 2/10 Laboratory Tests 06/17/21 05:12 06/17/21 05:12 Post-procedural complaints: none Patient Feedback: Patient satisfied with anesthetic care.
== END 2021-06-18 16:50 | disposition home or self-care (01) | DRG 392 ==
LOC: ANHED 14:13 → ANHIMU 06-17 11:56
PROVIDERS: Emergency Medicine; Internal Medicine Gastroenterology; Physician Assistant; Admitting Provider Internal Medicine; Emergency Provider Family Medicine; PCP Internal Medicine; Visit Provider Internal Medicine
PROC: 0DJ08ZZ Inspection of Upper Intestinal Tract, Via Natural or Artificial Opening Endoscopic (ICD-10-PCS; CPT 43235; principal; 2021-06-18 16:45)
DX: K22.4 Dyskinesia of esophagus (principal); R55 Syncope and collapse; Z20.822 Contact with and (suspected) exposure to COVID-19; I10 Essential (primary) hypertension; Z85.3 Personal history of malignant neoplasm of breast; Z79.899 Other long term (current) drug therapy; Z82.49 Family history of ischemic heart disease and other diseases of the circulatory system; E87.6 Hypokalemia; R07.89 Other chest pain; Z90.49 Acquired absence of other specified parts of digestive tract; K29.70 Gastritis, unspecified, without bleeding; K31.7 Polyp of stomach and duodenum
CPT/HCPCS: 36415; 71046; 80053; 83690; 83735; 84443; 84484; 85025; 85027; 85610; 85730; 87081; 88305; 93005; 93306; 99285; A9270; C9803; J7120; U0003; U0005

== ENCOUNTER 2021-07-01 07:25 | Outpatient (CLI) | payer OTHER, SELFPAY ==
--- NOTE | ~2021-07-01 | MR_ITS ---
EXAMINATION: MR MRCP wo/w con/w 3D wo ind DATE: 07/01/2021 09:12 INDICATION: Calculus of the bile duct without cholangitis TECHNIQUE: Magnetic resonance imaging (MRI) of the abdomen was performed without and with intravenous contrast. Sequences included coronal T2-weighted SS-FSE ARC, coronal T2-weighted FS SS-FSE, coronal T2-weighted 2D FS FIESTA, Water:Coronal LAVA-Flex, sagittal T2-weighted SS-FSE ARC, axial SSFSE ARC, axial 3D DualEcho, axial DWI B=600, axial T1-weighted LAVA, FAT:Coronal LAVA-Flex, and coronal in and opposed phase LAVA-Flex. Thick-slab T2-weighted FRFSE-XL images were obtained for magnetic resonance cholangiopancreatography (MRCP). Maximum intensity projection 3-D reconstructions of the volumetric data were created by the technologist. Postcontrast sequences included a time course of axial T1-weig hted LAVA, FAT:Coronal LAVA-Flex, coronal in and opposed phase LAVA-Flex, and Water:Coronal LAVA-Flex . COMPARISON: None. CONTRAST: Multihance, 18 cc FINDINGS: ABDOMEN MRI: The liver, spleen, pancreas, and adrenal glands are normal. The kidneys are unremarkable . A splenule is noted. The gallbladder is surgically absent. There are no pathologically enlarged abd ominal lymph nodes. There are no dilated loops of bowel. ABDOMEN MRCP: Portions of the distal common bile duct are excluded from the MRCP examination. There d oes however appear to be a 2 mm filling defect in the distal common bile duct on other T2-weighted se quences. The common bile duct is normal in caliber measuring up to 4 mm. The pancreatic duct is pia l in course and caliber. IMPRESSION: 1. Apparent 2 mm stone in the distal common bile duct without intrahepatic or extrahepatic biliary di latation. Reviewed, dictated and finalized at location A. IMPRESSION: 1. Apparent 2 mm stone in the distal common bile duct without intrahepatic or e xtrahepatic biliary dilatation.
== END 2021-07-01 07:26 | disposition home or self-care (01) ==
PROVIDERS: PCP Internal Medicine; Visit Provider Internal Medicine Gastroenterology
DX: R07.89 Other chest pain (principal); N20.0 Calculus of kidney; K80.50 Calculus of bile duct without cholangitis or cholecystitis without obstruction
CPT/HCPCS: 74183; 76376; A9577

== ENCOUNTER 2021-07-02 15:13 | Outpatient (CLI) | payer OTHER, SELFPAY ==
[2021-07-02 15:35] LABS: Alanine Aminotransferase 20 U/L (6-35); Alkaline Phosphatase 59 U/L (38-126); Anion Gap 8 mmol/L (8-16); Aspartate Amino Transferase 24 U/L (14-36); Bilirubin,Total 0.2 mg/dL (0.2-1.3); Blood Urea Nitrogen 12 mg/dL (7-17); Calcium 8.7 mg/dL (8.4-10.2); Carbon Dioxide 28 mmol/L (22-30); Chloride 106 mmol/L (98-107); Estimated Glomerular Filt Rate > 60; Glucose 98 mg/dL (65-110); Potassium 3.6 mmol/L (3.4-5.0); Sodium 142 mmol/L (137-145)
== END 2021-07-02 15:14 | disposition home or self-care (01) ==
LOC: ANHLAB 15:14
PROVIDERS: PCP Internal Medicine; Visit Provider Nurse Practitioner Family
DX: K80.50 Calculus of bile duct without cholangitis or cholecystitis without obstruction (principal)
CPT/HCPCS: 36415; 80053

== ENCOUNTER 2021-07-21 00:16 | Day surgery (SDC) | payer OTHER, SELFPAY ==
[2021-07-15 10:51] VITALS: BMI 36.3
[2021-07-21] VITALS (8 sets, daily range): BP systolic 102–154; BP diastolic 56–94; PULSE 60–94; RESP 12–23; TEMP 36.2–36.6; O2SAT 96–100; BMI 36.8
--- NOTE | ~2021-07-21 | XR_ITS ---
EXAMINATION: XR ERCP DATE: 07/21/2021 13:50 CDT INDICATION: BILE DUCT STONE . TECHNIQUE: 10 fluoroscopic images of the right upper quadrant were obtained during ERCP. I was not pr esent during the procedure. Fluoroscopy exposure time was 180.3 seconds. Cumulative dose 67.65 mGy. COMPARISON: MRI MRCP 07/01/2021. FINDINGS: Endoscope in the duodenum. Wire access to the cystic duct. Contrast fills a relatively normal-appeari ng biliary system. A balloon is inflated strain and withdrawn over subsequent images. Several lucent filling defects are present likely representing air bubbles. IMPRESSION: Fluoroscopic documentation of ERCP. Reviewed, dictated and finalized at location K.
[2021-07-21] MEDS: LACTATED RINGERS 1,000 ML 150 ML IV CONT ×2 (11:30→14:28)
--- NOTE | 2021-07-21 12:03 | WPDANESEPPF ---
Anes - Initial Pre Proc Eval Procedure: Operation Date: 07/21/21 12:30 Proposed Procedures p Endoscopic Retro Cholangiopancreatogram - Sandro Ruffin MD Date/Time: 07/21/21 12:03 Surgeon: Sandro Ruffin MD Pre Op Diagnosis: choledocolithiasis Patient Data Age: 45 Gender: F Height: 1.57 m Weight: 91.4 kg Last Vital Signs Temp 97.2 F L 07/21/21 11:00 Pulse 77 07/21/21 11:00 Resp 18 07/21/21 11:00 BP 129/80 07/21/21 11:00 Pulse Ox 98 07/21/21 11:00 O2 Del Method Room Air 07/21/21 11:00 Allergies Allergy/AdvReac Type Severity Reaction Status Date / Time No Known Allergies Allergy Verified 07/21/21 11:10 Home Medications Medication Instructions Recorded Confirmed Type lisinopril 20 1 tablet PO DAILY 06/16/21 07/21/21 History mg-hydrochlorothiazide 12.5 mg tablet tamoxifen 20 mg tablet 20 mg PO DAILY 06/16/21 07/21/21 History pantoprazole 40 mg tablet,delayed 40 mg PO QAM #30 tabs 06/18/21 07/21/21 Rx release Patient hx anesthesia problems: post op nausea/vomiting Family hx anesthesia problems: none Results Review: All pre-operative results and documents have been reviewed as part of the pre-operative evaluation. [facility] Past Medical History Medical History (Updated 07/02/21 @ 13:08 by JESSY AbebeN-Jeremy) Biliary colic Cancer of left breast (01/2017) Status post lumpectomy, radiation, chemotherapy, and Herceptin therapy now on tamoxifen. Choledocholithiasis Hypertension Non-cardiac chest pain Surgical History Surgical History History of cholecystectomy History of lumpectomy of left breast Family History Family History Father Cerebrovascular accident Heart disease Mother Hypertension Crohn's disease Sibling Asthma Social History Social History Social History: Surrogate decision maker: aJck Roberts, spouse. Code status: Full code. Smoking status: Never smoker Second hand tobacco smoke exposure: No Alcohol intake: current Alcohol use details: once a year Substance use: never Substance use type: does not use Living arrangements: with family Additional living arrangements comments: The patient lives in [place] with her . They have a grown son. Additional occupation/education comments: Employed at [employer]. Spiritual care concerns: No Anes - Eval Final PreProcedure Day of Procedure 07/21/21 12:03 Patient weight: obese Heart: regular rate and rhythm Lungs: clear to auscultation Airway: Mallampati scale class II Neurological: alert and oriented Last oral intake: >/= 8 hours ASA classification: III Emergent: no Anesthetic plan: proceed Anesthesia type and monitoring: general ETT and standard monitoring Results Review: All pre-operative results and documents have been reviewed as part of the pre-operative evaluation. Informed Consent: The patient's anesthetic plan and its attendant risks and benefits were discussed with the patient/family/POA. Questions were solicited and answers provided to the satisfaction of the patient/family/POA.
[2021-07-21] MEDS: SCOPOLAMINE 1.5 MG PATCH TRANSDERM (12:06)
--- NOTE | 2021-07-21 13:03 | PM.HPGS ---
History of Present Illness History of Present Illness Consent: Risks, benefits, and alternatives have been discussed and questions answered. Patient agrees to proceed with procedure. Chief complaint: choledocolithiasis Narrative: Theresa Roberts is a 45 year old female with intermittent upper abdominal/chest pain since April 2021 few weeks after cholecystectomy, MRCP showed possible 2mm stone in bile duct. Review of Systems Constitutional: Constitutional: Denies headache(s) and Denies weakness Eyes: Eyes: Denies blurry vision ENT: Reports Normal hearing present, Denies headache(s) and Denies neck pain Cardiovascular: Cardiovascular: Denies chest pain and Denies dyspnea Respiratory: Respiratory: Denies dyspnea Gastrointestinal: Gastrointestinal: Reports no additional gastrointestinal complaints Genitourinary: Genitourinary: Denies dysuria Musculoskeletal: Musculoskeletal: Denies neck pain Integumentary/Breasts: Skin/Breast: Denies dry skin Neurologic: Reports Normal hearing present, Denies headache(s) and Denies weakness Psychiatric: Psychiatric: Denies anxiety Endocrine: Endocrine: Denies change in body appearance Hematologic/Lymphatic: Hematologic/Lymphatic: Denies easy bleeding Allergic/Immunologic: Allergic/Immunologic: Denies urticaria PMFSH Past Medical History Medical History (Updated 07/02/21 @ 13:08 by LESVIA Abebe) Biliary colic Cancer of left breast (01/2017) Status post lumpectomy, radiation, chemotherapy, and Herceptin therapy now on tamoxifen. Choledocholithiasis Hypertension Non-cardiac chest pain Surgical History Surgical History (Updated 07/21/21 @ 13:04 by Sandro Ruffin MD) History of cholecystectomy History of lumpectomy of left breast Family History Family History Father Cerebrovascular accident Heart disease Mother Hypertension Crohn's disease Sibling Asthma Social History Social History Social History: Surrogate decision maker: Jack Roberts, spouse. Code status: Full code. Smoking status: Never smoker Second hand tobacco smoke exposure: No Alcohol intake: current Alcohol use details: once a year Substance use: never Substance use type: does not use Living arrangements: with family Additional living arrangements comments: The patient lives in [place] with her . They have a grown son. Additional occupation/education comments: Employed at [employer]. Spiritual care concerns: No Meds Home Medications and Allergies Home Medications Medication Instructions Recorded Confirmed Type lisinopril 20 1 tablet PO DAILY 06/16/21 07/21/21 History mg-hydrochlorothiazide 12.5 mg tablet tamoxifen 20 mg tablet 20 mg PO DAILY 06/16/21 07/21/21 History pantoprazole 40 mg tablet,delayed 40 mg PO QAM #30 tabs 06/18/21 07/21/21 Rx release Allergies Allergy/AdvReac Type Severity Reaction Status Date / Time No Known Allergies Allergy Verified 07/21/21 11:10 Vital Signs Vital Signs - 24 hr 07/21/21 11:00 Temperature 97.2 F L Pulse Rate 77 Respiratory Rate 18 Blood Pressure 129/80 Pulse Oximetry 98 Oxygen Delivery Room Air Exam Const: General: comfortable and no acute distress HENMT: General nose exam: Normal nares present Eyes: General: appearance normal, both eyes and all related structures Neck: Neck: no JVD Resp: Auscultation: clear to auscultation bilaterally Cardio: Rate: regular rate Rhythm: regular rhythm GI: Inspection: non-distended GI Palp: Yes Soft to palpation Skin: General skin exam: normal color Neuro: General: gait normal Speech: normal speech Extrem: General: normal to inspection Psych: Mental Status: mental status grossly normal Assessment and Plan Assessment and plan (1) Choledocholithiasis: Code(s): K80.5
[2021-07-21] MEDS: INDOMETHACIN 50 MG SUPP.RECT RECTAL (13:33)
--- NOTE | 2021-07-22 09:12 | WPDANESPN ---
Anes - Prog Note Post-Op Date/Time: 07/22/21 09:12 Cardiovascular status: normal Respiratory status: normal Airway patency: baseline Mental status: baseline Post-Op hydration status: normal Vital Signs: Last Vital Signs Temp 98 F 07/21/21 14:05 Pulse 63 07/21/21 15:05 Resp 20 07/21/21 15:05 BP 154/80 H 07/21/21 15:05 Pulse Ox 96 07/21/21 15:05 O2 Del Method Room Air 07/21/21 15:05 O2 Flow Rate 5 07/21/21 14:15 Pain Score (VAS): 02/22 Post-procedural complaints: none Patient Feedback: Patient satisfied with anesthetic care.
== END 2021-07-21 15:15 | disposition home or self-care (01) ==
PROVIDERS: Visit Provider Internal Medicine Gastroenterology
PROC: (CPT 43260; principal; 2021-07-21 12:30)
DX: K80.50 Calculus of bile duct without cholangitis or cholecystitis without obstruction (principal); K83.8 Other specified diseases of biliary tract; Z90.49 Acquired absence of other specified parts of digestive tract; I10 Essential (primary) hypertension; Z85.3 Personal history of malignant neoplasm of breast; Z92.3 Personal history of irradiation; Z92.21 Personal history of antineoplastic chemotherapy; Z79.810 Long term (current) use of selective estrogen receptor modulators (SERMs); E66.9 Obesity, unspecified; Z68.36 Body mass index [BMI] 36.0-36.9, adult
CPT/HCPCS: 43262; 43264; 74329; A9270; J1100; J2405; J2704; J3010; J7120